=== PATIENT | female | born 1990 | race Caucasian/White ===

== ENCOUNTER 2016-11-25 00:38 | Emergency (ER) | payer OTHER ==
[~2016-11-25] VITALS: Ht 162.6 cm; Wt 131.5 kg
[~2016-11-25 00:38] MED LIST: CYCL-319 PO; HYDR-3498 PO; IBUP-1542 PO
[2016-11-25 00:43] VITALS: Ht 162.6 cm; Wt 131.5 kg
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
--- NOTE | 2016-11-25 03:04 | RADRPT ---
PROCEDURE: CT Brain without contrast. CLINICAL INDICATION: Trauma TECHNIQUE: Axial images from the skull base through the vertex without IV contrast. Multiplanar r eformatted images were made. Images were reviewed on a PACS workstation. The CTDIvol is 44.73 mGy and the DLP is 810.25 mGycm. One or more of the following dose reduction techniques were used: auto mated exposure control, adjustment of the mA and/or kV according to patient size, or use of iterativ e reconstruction technique. COMPARISON: None. FINDINGS: The ventricles and cisterns are normal for age. There is no evidence for territorial infarction or intracranial hemorrhage. No mass or midline shift is seen. No extra-axial fluid collection is seen . . Incidental note is made of cavum septum pellucidum and cavum septum vergae. The visualized par anasal sinuses and mastoids are clear. IMPRESSION: No definite acute intracranial abnormality. RPTAT: [facility] Physician Misa Date Time Electronically viewed and signed by Physician Misa on 11/25/2016 03:03 HERMELINDO/
[2016-11-25] MEDS ORDERED: CYCL-319 PO (03:36)
[2016-11-25] MEDS ORDERED: HYDR-906 PO (03:36)
[2016-11-25 03:49] VITALS: BP 160/99; PULSE 89; RESP 17; TEMP 98.5
== END 2016-11-25 03:46 | disposition home or self-care (01) ==
LOC: FTE 00:38 → MERGE 00:38 → FTE 03:46
DX: S06.0X0A Concussion without loss of consciousness, initial encounter (principal); S16.1XXA Strain of muscle, fascia and tendon at neck level, initial encounter; V49.59XA Passenger injured in collision with other motor vehicles in traffic accident, initial encounter
CPT/HCPCS: 70450

== ENCOUNTER 2017-04-21 19:16 | Emergency (ER) | payer OTHER ==
[~2017-04-21] VITALS: Ht 157.5 cm; Wt 135.0 kg
[~2017-04-21 19:16] MED LIST changes: +HYDR-906 PO
[2017-04-21 19:19] VITALS: Ht 157.5 cm; Wt 135.0 kg
[2017-04-21] MEDS ORDERED: KETOROLAC 60 MG INJ IM STA (22:32)
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
[2017-04-21] MEDS ORDERED: HYDROCODONE/APAP (10/325) TAB PO ONE (23:00)
--- NOTE | 2017-04-22 00:51 | RADRPT ---
PROCEDURE: CT THORACIC SPINE WITHOUT CONTRAST CLINICAL INDICATION: 26 years of age, female. Back pain . TECHNIQUE: CT of the thoracic spine was performed without intravenous contrast. Coronal and sagittal reformatted images were obtained from the axial source images. Images were reviewed on a high-resol [employer] PACS workstation. Dose information: The estimated radiation dose (CTDIvol mGy for each series in this exam is 38. The estimated cumulative dose (DLP mGy-cm is 1571. One or more of the following dose reduction techniques were used: - Automated exposure control. - Adjustment of the mA and/or kV according to patient size. - Use of iterative reconstruction technique. COMPARISON: None available. FINDINGS: There are 12 rib-bearing thoracic vertebra. Thoracic spine is imaged from C5 to L1. Alignment: Normal. Vertebrae: Vertebral bodies and posterior elements are intact without acute fracture. Bone mineral density appears normal. No suspicious bone lesions are identified. Vertebral body heigh ts are maintained. Disks and Facets: There is degenerative disc disease in the lower thoracic spine. Involved disc levels are as follows: T10-11: There is disc bulging with a posterior disc osteophyte complex that indents the thecal sac anteriorly resulting in moderate central canal stenosis and left lateral recess stenosis. Thecal sac measures 0.7 cm in AP diameter. T11-12: Disc bulging with a posterior disc osteophyte complex flattens the thecal sac anteriorly an d results in moderate central canal stenosis. Thecal sac measures 0.7 cm in AP diameter. T12-L1: Disc bulging and posterior disc osteophyte complex results in moderate to severe central ca nal stenosis. There is flattening of the thecal sac anteriorly that measures 0.5 cm in AP diameter. Extravertebral soft tissues: Normal. Visualized chest and abdomen: Diffuse hepatic steatosis. Additional comment: None. IMPRESSION: 1. Degenerative disc disease in the lower thoracic spine with posterior disc osteophyte complexes th at result in multilevel central canal stenosis at T10-11, T11-12 and T12-L1. The T12-L1 level is mos t affected with moderate to severe central canal stenosis. 2. Diffuse hepatic steatosis. RPTAT: HCTS Claudiay Sadro, Physician Date Time Electronically viewed and signed by Luke Carroll, Physician on 04/22/2017 00:51 CS/
--- NOTE | 2017-04-22 00:58 | RADRPT ---
PROCEDURE: CT LUMBAR SPINE WITHOUT CONTRAST CLINICAL INDICATION: 26 years of age female. Back pain . TECHNIQUE: CT of the lumbar spine was performed without intravenous contrast. Coronal and sagittal r eformatted images were obtained from the axial source images. Images were reviewed on a high-resolut [employer] PACS workstation. Dose information: Based on a 32 cm phantom, the estimated radiation dose (CTDIvol mGy) for each seri es in this exam is 39. The estimated cumulative dose (DLP mGy-cm) is 1304. One or more of the following dose reduction techniques were used: - Automated exposure control. - Adjustment of the mA and/or kV according to patient size. - Use of iterative reconstruction technique. COMPARISON: CT thoracic spine from the same day FINDINGS: There are an 5 mobile lumbar-type vertebra. Lumbar spine is imaged from T12 to the sacrum. Alignment: Normal. Vertebrae: Bone mineral density appears normal. No suspicious bone lesions. Vertebral body heights are maintain ed. Vertebral bodies and posterior elements are intact without acute fracture. Disks and Facets: There are degenerative changes in the lower thoracic spine. T12-L1: There is degenerative disc disease with a posterior disc osteophyte complex resulting in mod erate to severe central canal stenosis. Thecal sac measures 0.5 cm in AP diameter. L1-L2: Disc is unremarkable. Facet joints appear normal. Negative for stenosis or nerve root compre ssion. L2-L3: Disc is unremarkable. Facet joints appear normal. Negative for stenosis or nerve root ronak dante. L3-L4: Disc is unremarkable. Facet joints appear normal. Negative for stenosis or nerve root ronak dante. L4-L5: Disc is unremarkable. Facet joints appear normal. Negative for stenosis or nerve root ronak dante. L5-S1: Disc is unremarkable. Facet joints appear normal. Negative for stenosis or nerve root ronak dante. Extravertebral soft tissues: There is nonspecific soft tissue stranding in the subcutaneous fat of t he mid back at the L1 level. Visualized abdomen and pelvis: Hepatic steatosis. Additional comment: None. IMPRESSION: 1. Degenerative disc disease in the lower thoracic spine is described on thoracic spine CT reported separately. Posterior disc osteophyte complex at T12-L1 results in moderate to severe central canal stenosis. 2. Remaining disc levels in the lumbar spine are normal without stenosis or nerve root compression. 3. Hepatic steatosis. RPTAT: HCTS Luke Carroll, Physician Date Time Electronically viewed and signed by Luke Carroll, Physician on 04/22/2017 00:58 CS/
[2017-04-22] MEDS ORDERED: HYDR-906 PO (01:17)
[2017-04-22] MEDS ORDERED: CYCL-319 PO (01:17)
[2017-04-22] MEDS ORDERED: IBUP-1542 PO (01:17)
[2017-04-22 01:24] VITALS: PULSE 98
== END 2017-04-22 01:24 | disposition home or self-care (01) ==
LOC: FTE 19:16
DX: M51.34 Other intervertebral disc degeneration, thoracic region (principal)
CPT/HCPCS: 72128; 72131; J1885; Z7610; 96372

== ENCOUNTER 2018-08-23 13:15 | Emergency (ER) | payer OTHER ==
[~2018-08-23] VITALS: Ht 165.1 cm; Wt 148.0 kg
[~2018-08-23 13:15] MED LIST changes: -CYCL-319 PO; +CYCL10TA7 PO; +HYDR-4011 PO; -HYDR-906 PO
[2018-08-23 14:04] VITALS: BP 162/91; PULSE 117; RESP 18; Ht 165.1 cm; Wt 148.0 kg
[2018-08-23] MEDS ORDERED: ACETAMINOPHEN 500 MG TAB PO STA (16:02)
[2018-08-23] MEDS ORDERED: IBUP-1542 PO (17:44)
[2018-08-23] MEDS ORDERED: HYDR-4011 PO (17:44)
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
== END 2018-08-23 17:58 | disposition home or self-care (01) ==
LOC: FTE 13:15
DX: S40.212A Abrasion of left shoulder, initial encounter (principal); S20.219A Contusion of unspecified front wall of thorax, initial encounter; S13.9XXA Sprain of joints and ligaments of unspecified parts of neck, initial encounter; R07.9 Chest pain, unspecified; V89.2XXA Person injured in unspecified motor-vehicle accident, traffic, initial encounter
CPT/HCPCS: 71045; 72040; 93005; Z7502; Z7610